=== PATIENT | female | born 1975 | race Two or more races ===

== ENCOUNTER 2022-07-13 08:40 | Emergency (ER) | payer OTHER ==
[~2022-07-13] VITALS: Ht 162.6 cm; Wt 65.8 kg
== END 2022-07-13 12:29 | disposition home or self-care (01) ==
LOC: ER 08:40
DX: R00.2 Palpitations (principal)

== ENCOUNTER 2022-07-20 14:04 | Emergency (ER) | payer OTHER ==
[~2022-07-20] VITALS: Ht 157.5 cm; Wt 90.7 kg
== END 2022-07-20 19:10 | disposition home or self-care (01) ==
LOC: ER 14:04
DX: M94.0 Chondrocostal junction syndrome [Tietze] (principal); T50.905A Adverse effect of unspecified drugs, medicaments and biological substances, initial encounter; Y92.89 Other specified places as the place of occurrence of the external cause